=== PATIENT | female | born 1980 | race Two or more races ===

== ENCOUNTER 2021-12-14 10:01 | Emergency (ER) | payer OTHER, SELFPAY ==
[2021-12-14] VITALS (8 sets, daily range): BP systolic 111–142; BP diastolic 73–92; PULSE 60–87; RESP 16–18; TEMP 37.1; O2SAT 98–100; BMI 28.3
--- NOTE | 2021-12-14 10:08 | ECG_ITS ---
APPROVED REPORT Exam: Resting ECG HR:79 bpm ECG Measurements Heart Rate 79 AXES SD 153 P 54 QRSd 75 QRS 51 QT 373 T 64 QTc 408 Conclusion SINUS RHYTHM NORMAL ECG UNCONFIRMED REPORT Electronically signed by : Tushar Currie MD 12/14/2021 19:02:51
--- NOTE | 2021-12-14 10:13 | PC.NURSE ---
pt in bathroom giving urine sample
--- NOTE | 2021-12-14 10:19 | PC.NURSE ---
UA sent to lab; ER at for patient eval
[2021-12-14 10:23] LABS: Appearance,Urine CLEAR (Clear); Bilirubin,Urine Negative (Negative); Blood, Urine Negative (Negative); Color,Urine YELLOW (Yellow); Glucose,Urine (UA) Negative (Negative); Ketones,Urine Negative (Negative); Leukocyte Esterase,Urine Negative (Negative); Nitrate,Urine Negative (Negative); Protein,Urine Negative (Negative); Specific Gravity, Urine 1.025 (1.005-1.030); Urobilinogen,Urine 0.2 EU/dl (0.2)
[2021-12-14 10:24] LABS: Microscopic, Urine URINE MICROSCOPIC (MICROSCOPIC)
--- NOTE | 2021-12-14 10:27 | XR_ITS ---
PROCEDURE INFORMATION: Exam: XR Chest Exam date and time: 12/14/2021 11:06 AM Age: 41 years old Clinical indication: Chest wall pain; Additional info: Cp TECHNIQUE: Imaging protocol: Radiologic exam of the chest. Views: 1 view. COMPARISON: No relevant prior exams. FINDINGS: Lungs: Unremarkable. No consolidation. Pleural spaces: Unremarkable. No pleural effusion. No pneumothorax. Heart/Mediastinum: Unremarkable. No cardiomegaly. Bones/joints: Unremarkable. IMPRESSION: No acute cardiopulmonary disease.
--- NOTE | 2021-12-14 10:29 | [facility].EDGENADL ---
ED Disposition Clinical Impression: Non-cardiac chest pain Disposition: Home, Self-Care Condition on Discharge: Fair Additional Instructions: Follow-up with your family doctor regarding this visit to the emergency department. They will help you be able to better identify and treat your chest tightness. Take Tylenol 1000 mg 4 times daily and ibuprofen 400 mg 4 times daily with food and water for symptomatic pain control. If you have any other concerning signs or symptoms, return to the emergency department or your primary care provider for further evaluation. Referrals: Provider,Referral, [Referring] - - Critical Care Critical Care Time: No Attestation: On , the high probability of a clinically significant, sudden or life threatening deterioration of the following system(s) required my full and direct attention, intervention and personal management. The time I documented below is in addition to time spent performing reported procedures but includes the following listed in this critical care notation. Medical Decision Making - Idris Inquiry Pt receiving controlled substance: No Vital Signs: 12/14/21 10:09 12/14/21 10:40 12/14/21 10:51 Temperature 98.8 F Temperature Source Oral Pulse Rate 78 69 Pulse Rate [Left Radial] 87 Respiratory Rate 16 Blood Pressure 134/89 115/80 Blood Pressure [Right Arm] 126/92 H Blood Pressure Mean 95 94 Blood Pressure Mean [Right Arm] 103 Blood Pressure Source [Right Arm] Automatic Cuff Blood Pressure Position [Right Arm] Sitting 02 Sat by Pulse Oximetry 98 99 99 Oxygen Delivery Method Room Air Room Air Room Air 12/14/21 11:06 12/14/21 11:22 12/14/21 11:36 Temperature Temperature Source Pulse Rate 70 63 65 Pulse Rate [Left Radial] Respiratory Rate Blood Pressure 111/78 142/77 H 128/79 Blood Pressure [Right Arm] Blood Pressure Mean 89 99 102 Blood Pressure Mean [Right Arm] Blood Pressure Source [Right Arm] Blood Pressure Position [Right Arm] 02 Sat by Pulse Oximetry 100 100 99 Oxygen Delivery Method Room Air 12/14/21 11:51 12/14/21 11:54 Temperature 98.8 F Temperature Source Pulse Rate 60 60 Pulse Rate [Left Radial] Respiratory Rate 18 Blood Pressure 119/73 119/73 Blood Pressure [Right Arm] Blood Pressure Mean 98 Blood Pressure Mean [Right Arm] Blood Pressure Source [Right Arm] Blood Pressure Position [Right Arm] 02 Sat by Pulse Oximetry 99 Oxygen Delivery Method Room Air Room Air - Lab Data Lab Results 12/14/21 10:18: Urine Color Yellow, Urine Appearance Clear, Urine pH 6.0, Ur Specific [place] 1.025, Urine Protein Negative, Urine Glucose (UA) Negative, Urine Ketones Negative, Urine Blood Negative, Urine Nitrate Negative, Urine Bilirubin Negative, Urine Urobilinogen 0.2, Ur Leukocyte Esterase Negative, Urine RBC None, Urine WBC None, Ur Squamous Epith Cells 3-5, Urine Bacteria Trace 12/14/21 10:37: WBC 7.7, RBC 4.24, Hgb 13.8, Hct 42.0, MCV 99.2 H, MCH 32.5 H, MCHC 32.7, RDW 13.3, Plt Count 282, MPV 8.3, Neut % (Auto) 71.8, Lymph % (Auto) 21.2, [place] % (Auto) 5.3, Eos % (Auto) 0.9, Baso % (Auto) 0.7, Neut # (Auto) 5.5, Lymph # (Auto) 1.6, [place] # (Auto) 0.4, Eos # (Auto) 0.1, Baso # (Auto) 0.1 12/14/21 10:37: Sodium 138, Potassium 3.8, Chloride 107, Carbon Dioxide 24, Anion Gap 10.8, BUN 13, Creatinine 0.70, Estimated Creat Clear 99, Estimated GFR 92, Est GFR ( Amer) 112, Glucose 98, Calcium 9.0, Total Bilirubin 0.7, AST 40 H, ALT 39, Alkaline Phosphatase 110, Troponin I < 0.01, Total Protein 7.5, Albumin 4.3, Globulin 3.2, Albumin/Globulin Ratio 1.3, Lipase 88, HCG, Quant < 2 12/14/21 10:37: Lactate 0.9 Result diagrams: 12/14/21 10:37 12/14/21 10:37 Orders (Tests/Meds): ED MEDICATIONS Discontinued Medications Generic Name Dose Route Start Last Admin Trade Name Freq PRN Reason Stop Dose Admin Hydrocodone Bitart/Acetaminophen 1 tab 12/14/21 10:27 12/14/21 10:34 Hydrocodone/Ap
[2021-12-14 10:34] LABS: Bacteria,Urine Trace /lpf
[2021-12-14 10:44] LABS: Basophils # 0.1 K/mm3 (0-0.2); Basophils % 0.7 % (0.1-2.0); Eosinophils # 0.1 K/mm3 (0.0-0.4); Eosinophils % 0.9 % (0.1-12.0); Hemoglobin 13.8 g/dL (12.2-16.2); Lymphocytes # 1.6 K/mm3 (0.7-4.5); Lymphocytes % 21.2 % (10-50); Mean Corpuscular HGB Conc 32.7 g/dL (31.8-35.4); Mean Corpuscular Hemoglobin 32.5 pg (27.0-31.2); Mean Corpuscular Volume 99.2 fl (81-99); Mean Platelet Volume 8.3 fl (7.4-10.4); Monocytes # 0.4 K/mm3 (0.1-1.0); Monocytes % 5.3 % (1.7-9.3); Neutrophils # 5.5 K/mm3 (1.8-7.8); Neutrophils % 71.8 % (37.0-80.0); Platelet Count 282 K/mm3 (142-424); Red Blood Count 4.24 M/mm3 (4.20-5.40); Red Cell Distribution Width 13.3 % (11.5-17.5); White Blood Count 7.7 K/mm3 (4.8-10.8)
[2021-12-14 10:51] LABS: Alanine Aminotransferase 39 U/L (12-78); Albumin Level 4.3 g/dl (3.5-5.0); Albumin/Globulin Ratio 1.3 (1.1-1.8); Alkaline Phosphatase 110 U/L (38-126); Anion Gap 10.8 mEq/L (5-15); Aspartate Amino Transferase 40 U/L (14-36); Bilirubin,Total 0.7 mg/dl (0.2-1.3); Blood Urea Nitrogen 13 mg/dl (7-17); Carbon Dioxide 24 mmol/L (22.0-30.0); Chloride 107 mmol/L (98-107); Creatinine Clearance Estimated 99 mL/min (50-200); Estimated Glomerular Filt Rate 92 ml/min (>60); GFR (African American) 112 ML/MIN (>60); Globulin 3.2 g/dL (1.3-3.2); Glucose 98 mg/dl (74-100); Lipase 88 U/L (23-300); Potassium 3.8 mmoL/L (3.5-5.1); Sodium 138 mmol/L (136-145); Total Protein,Serum 7.5 g/dl (6.3-8.2)
[2021-12-14 10:54] LABS: Lactic Acid 0.9 mmol/L (0.7-2.1)
--- NOTE | 2021-12-14 10:58 | PC.NURSE ---
radiololgy at BS for portable chest
[2021-12-14 11:04] LABS: Troponin I < 0.01 ng/ml (0.00-0.034)
[2021-12-14 11:15] LABS: HCG,Quantitative < 2 mIU/ml (0-5.42)
== END 2021-12-14 11:55 | disposition home or self-care (01) ==
PROVIDERS: Emergency Provider Emergency Medicine; PCP Internal Medicine
DX: R07.89 Other chest pain (principal); R30.0 Dysuria
CPT/HCPCS: 71045; 80053; 81001; 83605; 83690; 84484; 84702; 85025; 93005; 96360; 99284